=== PATIENT | female | born 1980 | race Two or more races ===

== ENCOUNTER 2017-04-19 09:15 | Emergency (ER) | payer OTHER ==
[2017-04-19] MEDS ORDERED: NS 1,000 ML IV ONE (09:36)
--- NOTE | 2017-04-19 09:37 | EDPHY ---
HPI/HX/ROS/PE/MDM Narrative: CHIEF COMPLAINT: Flank pain, abdominal pain, nausea HPI: The patient is a Togolese-speaking 37 y/o female complaining of left flank pain onset two weeks ago and worsening over the last week. Shortly after flank pain began, she developed lower abdominal pain and nausea. Her symptoms worsened this morning and she came into he ED instead of her PCP due to pain. She has associated polyuria and darker urine, but denies dysuria or hematuria. She is having normal bowel movements and denies vomiting. She has not had these symptoms previously. She has a history of a cholecystectomy and fatty liver. History obtained via international controller. REVIEW OF SYSTEMS: Aside from elements discussed in the HPI, a comprehensive 10-point review of systems was reviewed and is negative. PMH: "fat on liver;" cholecystectomy SOCIAL HISTORY: Togolese-speaking. [facility] PHYSICAL EXAM: General:Patient is alert, in no acute distress. ENT:Eyes are normal to inspection. ENT inspection normal. Neck: Normal inspection. Full range of motion. Respiratory:No respiratory distress. Breath sounds normal bilaterally. Cardiovascular: Regular rate and rhythm. Strong peripheral pulses. Normal cap refill. Abdomen:The abdomen has diffuse tenderness to palpation. There are no peritoneal signs. There are normal bowel sounds. Back: Normal to inspection. Left flank tenderness. Skin: Normal color. No rash. Warm and dry. Extremities: Normal appearance. Full range of motion. Neuro: Oriented x3. Normal motor function. Normal sensory function. ED Course: This is a healthy 37 y/o female presenting with a 2-week history of worsening left flank pain and lower abdominal pain that is now associated with nausea and polyuria. She has left CVA tenderness and diffuse abdominal tenderness on exam. Plan for IV, labs, UA, and symptom management. We will consider imaging if symptoms do not improve. 30mg IV Toradol, 4mg IV Zofran, 0.5mg IV Dilaudid administered for pain and nausea. Abdominal CT is negative for acute process. Her UA shows some blood. She continues to have pain. Pelvic US ordered. US is negative. Urine will be sent for culture. I discussed work up with her via international controller. She will be discharged in good condition with antibiotics and recommendation to follow up with her PCP for unimproved symptoms. Return precautions given. She is comfortable with plan for follow up. - Data Points Imaging Results: Imaging Impressions Abdomen CT 04/19/17 10:37 Impression: 1. No CT evidence of appendicitis, abscess or bowel obstruction. 2. Small Fat-containing periumbilical abdominal wall hernia. 3. No urinary tract obstruction. Findings and recommendations discussed with Emergency Department physician, Silvio Bhakta MD at 12:01 hour, 04/19/2017. Final report concurs with initial preliminary interpretation. Pelvic/Renal Ultrasound 04/19/17 12:25 Impression: 1. Small subacute right ovarian hemorrhagic follicle. No torsion. 2. Probable small, 0.6 cm, endometrial polyp. Findings discussed with Emergency Department physician, Dr. Silvio Bhakta, on April 19, 2017 at 1335 hours. Imaging: Discussed imaging studies w/ call out operator Radiologist, I viewed and interpreted images myself Laboratory Results: Laboratory Results 04/19/17 09:49 04/19/17 09:49 04/19/17 04/19/17 04/19/17 09:49 09:49 09:49 WBC RBC Hgb Hct MCV MCH MCHC RDW Plt Count MPV Neut % (Auto) Lymph % (Auto) Reynolds % (Auto) Eos % (Auto) Baso % (Auto) Nucleat RBC Rel Count Absolute Neuts (auto) Absolute Lymphs (auto) Absolute Monos (auto) Absolute Eos (auto) Absolute Basos (auto) Absolute Nucleated RBC Immature Gran % Immature Gran # Sodium 141 mEq/L mEq/L (134-144) Potassium 3.9 mEq/L mEq/L (3.5-5.2) Chloride 106 mEq/L mEq/L (97-110) Carbon Dioxide 21 mEq/l L mEq/l (22-31) Anion Gap 14 mEq/L mEq/L (8-16) BUN 13 mg/dL mg/dL (7-23) Creatinine 0.5 mg/dL L mg/dL (0.6-1.0) Estimated GFR > 60 Glucose 102 mg/dL H mg/dL (70-100) Calcium 9.5 mg/dL mg/dL (8.5-10.4) Beta HCG, Qual NEGATIVE Urine Color YELLOW Urine Appearance HAZY Urine pH 5.0 (5.0-7.5) Ur Specific Prim 1.016 (1.002-1.030) Urine Protein NEGATIVE (NEGATIVE) Urine Ketones NEGATIVE (NEGATIVE) Urine Blood 2+ H (NEGATIVE) Urine Nitrate NEGATIVE (NEGATIVE) Urine Bilirubin NEGATIVE (NEGATIVE) Urine Urobilinogen NEGATIVE EU EU (0.2-1.0) Ur Leukocyte Esterase NEGATIVE (NEGATIVE) Urine RBC 5-10 /hpf H /hpf (0-3) Urine WBC NONE SEEN /hpf /hpf (0-3) Ur Epithelial Cells TRACE /lpf /lpf (NONE-1+) Urine Mucus TRACE /lpf /lpf (NONE-1+) Urine Glucose NEGATIVE (NEGATIVE) 04/19/17 09:49 WBC 7.73 10^3/uL 10^3/uL (3.80-9.50) RBC 5.43 10^6/uL H 10^6/uL (4.18-5.33) Hgb 14.7 g/dL g/dL (12.6-16.3) Hct 44.5 % % (38.0-47.0) MCV 82.0 fL fL (81.5-99.8) MCH 27.1 pg L pg (27.9-34.1) MCHC 33.0 g/dL g/dL (32.4-36.7) RDW 13.4 % % (11.5-15.2) Plt Count 274 10^3/uL 10^3/uL (150-400) MPV 10.3 fL fL (8.7-11.7) Neut % (Auto) 66.7 % % (39.3-74.2) Lymph % (Auto) 26.1 % % (15.0-45.0) Reynolds % (Auto) 4.4 % L % (4.5-13.0) Eos % (Auto) 1.8 % % (0.6-7.6) Baso % (Auto) 0.5 % % (0.3-1.7) Nucleat RBC Rel Count 0.0 % % (0.0-0.2) Absolute Neuts (auto) 5.15 10^3/uL 10^3/uL (1.70-6.50) Absolute Lymphs (auto) 2.02 10^3/uL 10^3/uL (1.00-3.00) Absolute Monos (auto) 0.34 10^3/uL 10^3/uL (0.30-0.80) Absolute Eos (auto) 0.14 10^3/uL 10^3/uL (0.03-0.40) Absolute Basos (auto) 0.04 10^3/uL 10^3/uL (0.02-0.10) Absolute Nucleated RBC 0.00 10^3/uL 10^3/uL (0-0.01) Immature Gran % 0.5 % % (0.0-1.1) Immature Gran # 0.04 10^3/uL 10^3/uL (0.00-0.10) Sodium Potassium Chloride Carbon Dioxide Anion Gap BUN Creatinine Estimated GFR Glucose Calcium Beta HCG, Qual Urine Color Urine Appearance Urine pH Ur Specific Prim Urine Protein Urine Ketones Urine Blood Urine Nitrate Urine Bilirubin Urine Urobilinogen Ur Leukocyte Esterase Urine RBC Urine WBC Ur Epithelial Cells Urine Mucus Urine Glucose Medications Given: Discontinued Medications Hydromorphone HCl (Dilaudid) 0.5 mg IVP EDNOW ONE Stop: 04/19/17 10:11 Last Admin: 04/19/17 10:15 Dose: 0.5 mg Hydromorphone HCl (Dilaudid) 0.5 mg IVP EDNOW ONE Stop: 04/19/17 12:36 Last Admin: 04/19/17 12:40 Dose: 0.5 mg Sodium Chloride (Ns) 1,000 mls @ 0 mls/hr IV EDNOW ONE; Wide Open PRN Reason: Protocol Stop: 04/19/17 09:37 Last Admin: 04/19/17 09:49 Dose: 1,000 mls Ketorolac Tromethamine (Toradol) 30 mg IVP EDNOW ONE Stop: 04/19/17 09:39 Last Admin: 04/19/17 09:49 Dose: 30 mg Ondansetron HCl (Zofran) 4 mg IVP EDNOW ONE Stop: 04/19/17 10:11 Last Admin: 04/19/17 10:14 Dose: 4 mg General Time Seen by Provider: 04/19/17 09:28 Initial Vital Signs: Initial Vital Signs Temperature (C) 36.2 C 04/19/17 09:19 Heart Rate 109 H 04/19/17 09:19 Respiratory Rate 16 04/19/17 09:19 Blood Pressure 152/99 H 04/19/17 09:19 O2 Sat (%) 97 04/19/17 09:19 O2 Delivery Mode Room Air Allergies/Adverse Reactions: No Known Allergies Allergy (Verified 04/19/17 09:18) Home Medications: Medication Instructions Recorded Ibuprofen [Motrin (*)] 400 - 600 mg PO Q8H PRN 07/24/14 Cephalexin [Keflex] 500 mg PO TID #21 cap 04/19/17 Departure - Departure Disposition: Home, Routine, Self-Care Clinical Impression: Flank pain Abdominal pain Qualifiers: Abdominal location: generalized Qualified Code(s): R10.84 - Generalized abdominal pain Urinary tract infection Qualifiers: Urinary tract infection type: site unspecified Hematuria presence: with hematuria Qualified Code(s): N39.0 - Urinary tract infection, site not specified Condition: Good Instructions: Urinary Tract Infection in Women (ED), Abdominal Pain (ED), Flank Pain (ED) Additional Instructions: 1. Take antibiotics as prescribed. Be sure to complete entire prescription. 2. Use Tylenol or ibuprofen as directed on the packaging as needed for pain over the 3-4 days. 3. Follow up with your primary care provider for unimproved symptoms over the next few days. 4. Return to the ED for worsening of condition. Referrals: HEATHER MURRIETA [Other] - As per Instructions Prescriptions: Cephalexin [Keflex] 500 mg PO TID #21 cap Report Scribed for: Silvio Bhakta Report Scribed by: Mónica Godfrey Date of Report: 04/19/17 Time of Report: 09:37 Physician Review and Approval Statement: Portions of this note were transcribed by an ED scribe. I personally performed the history, physical exam, and medical decision making; and confirm the accuracy of the information in the transcribed note.
[2017-04-19] MEDS ORDERED: KETOROLAC 30 MG/1 ML SDV IVP ONE (09:38)
[2017-04-19 10:01] LABS: % IMMATURE GRANULYOCYTES 0.5 % (0.0-1.1); ABSOLUTE IMMATURE GRANULOCYTES 0.04 10^3/uL (0.00-0.10); ADD DIFF? NO; ADD MORPH? NO; ADD SCAN? YES; FRAGMENT RBC FLAG 0 (0-99); HEMATOCRIT 44.5 % (38.0-47.0); HEMOGLOBIN 14.7 g/dL (12.6-16.3); LEFT SHIFT FLG 0 (0-99); LIPEMIA HEMOLYSIS FLAG 80 (0-99); MEAN CELL HEMOGLOBIN 27.1 pg (27.9-34.1); MEAN PLATELET VOLUME 10.3 fL (8.7-11.7); PLATELET CLUMPS FLAG 0 (0-99); PLATELET COUNT 274 10^3/uL (150-400); RED BLOOD CELL COUNT 5.43 10^6/uL (4.18-5.33); RED CELL DISTRIBUTION WIDTH 13.4 % (11.5-15.2)
[2017-04-19 10:05] LABS: ATYPICAL LYMPHOCYTE FLAG 130 (0-99)
[2017-04-19 10:07] LABS: COLOR YELLOW; LEUKOCYTE ESTERASE,URINE NEGATIVE (NEGATIVE); NITRITE,URINE NEGATIVE (NEGATIVE)
[2017-04-19] MEDS ORDERED: HYDROmorphONE/DILAUDID 1 MG/ML SYR IVP ONE ×2 (10:10→12:35)
[2017-04-19] MEDS ORDERED: ONDANSETRON 4 MG/2 ML VIAL IVP ONE ×2 (10:10→14:03)
[2017-04-19 10:15] LABS: ANION GAP 14 mEq/L (8-16); CALCIUM 9.5 mg/dL (8.5-10.4); CARBON DIOXIDE 21 mEq/l (22-31); CHLORIDE 106 mEq/L (97-110); CREATININE 0.5 mg/dL (0.6-1.0); GLOMERULAR FILTRATION RATE > 60; GLUCOSE 102 mg/dL (70-100); MUCUS TRACE /lpf (NONE-1+); POTASSIUM 3.9 mEq/L (3.5-5.2); SODIUM 141 mEq/L (134-144)
[2017-04-19 10:16] LABS: WBC,URINE NONE SEEN /hpf (0-3)
[2017-04-19 10:33] LABS: SCAN NEGATIVE
[2017-04-19] MEDS ORDERED: IOPAMIDOL (ISOVUE-300) 100 ML BTL ONE (11:21)
[2017-04-19 11:55] VITALS: O2SAT 98
[2017-04-19 14:47] VITALS: BP 99/62; PULSE 93; RESP 20; TEMP 97.5
== END 2017-04-19 14:46 | disposition home or self-care (01) ==
DX: N39.0 Urinary tract infection, site not specified (principal); B96.89 Other specified bacterial agents as the cause of diseases classified elsewhere; E86.9 Volume depletion, unspecified; Z90.49 Acquired absence of other specified parts of digestive tract
CPT/HCPCS: 96374; J1170; J1885; J2405; Q9967

== ENCOUNTER 2017-08-21 11:02 | Emergency (ER) | payer MEDICAID, OTHER ==
[2017-08-21 11:59] LABS: PLATELET COUNT 301 10^3/uL (150-400)
--- NOTE | 2017-08-21 13:02 | EDPHY ---
H & P Stated Complaint: BILAT HAND, KNEE, NECK PAIN AND EDEMA HPI/ROS: Chief complaint: Joint pain and swelling History of present illness: This is a 37-year-old female who presents to the emergency department for evaluation of joint pain and swelling. Patient reports the onset of symptoms over the last 3 days. Initially started in her left wrist , then her right wrist became involved and now her left knee. She is becoming sore in her neck and back as well. She states a few days prior to the onset of symptoms she had a rash. She did go to her primary care doctor's office and was told it was likely viral and the rash resolved on its own without specific intervention. She denies other potential precipitating factors. She has been treating the pain with naproxen with minimal improvement. She denies other alleviating or any aggravating factors. She denies other associated signs or symptoms including no fevers, no recent cold symptoms, no current rash, no history of trauma recently. Review of systems: A 10 point review of systems was obtained and other than described above was negative - Personal History LMP (Females 10-55): Unknown Current Tetanus/Diphtheria Vaccine: Yes Current Tetanus Diphtheria and Acellular Pertussis (TDAP): Yes Tetanus Vaccine Date: < 10 - Medical/Surgical History Hx Asthma: No Hx Chronic Respiratory Disease: No Hx Diabetes: No Hx Cardiac Disease: No Hx Renal Disease: No Hx Cirrhosis: No Hx Alcoholism: No Hx HIV/AIDS: No Hx Splenectomy or Spleen Trauma: No Other PMH: DENIES PSH - Social History Smoking Status: Never smoked - Physical Exam Exam: General Appearance: Alert, nontoxic. Eyes: Pupils equal and round no pallor or injection. ENT, Mouth: Mucous membranes moist. Respiratory: There are no retractions, lungs are clear to auscultation. Cardiovascular: Regular rate and rhythm. Gastrointestinal: Abdomen is soft and non tender, no masses, bowel sounds normal. Neurological: Alert and oriented x4. Cranial nerves 2-12 grossly intact. Strength and sensation intact and symmetrical. Skin: Mild erythema and edema around the left and right wrist and left knee. Musculoskeletal: Neck is supple non tender. The spine in the rest the back is nontender to palpation. There is mild erythema edema to both wrists and to the left knee. Tender to palpation and there is discomfort with ranging him. The other joints are unremarkable. Psychiatric: Patient is oriented X 3, there is no agitation. Constitutional: Initial Vital Signs Temperature (C) 37.1 C 08/21/17 11:12 Heart Rate 75 08/21/17 11:12 Respiratory Rate 16 08/21/17 11:12 Blood Pressure 103/78 08/21/17 11:12 O2 Sat (%) 93 08/21/17 11:12 O2 Delivery Mode Room Air Allergies/Adverse Reactions: No Known Allergies Allergy (Verified 04/19/17 09:18) Home Medications: Medication Instructions Recorded NK [No Known Home Meds] 08/21/17 Medical Decision Making ED Course/Re-evaluation: Patient is discussed with my secondary supervising physician Dr. Angelo Goldman. Patient presents to the emergency department for pain and swelling in multiple joints. On presentation she is nontoxic. She does appear somewhat uncomfortable. Blood studies are obtained with nonspecific findings. I have consulted with rheumatology, Dr. Megha Rm. She recommended patient get an CHIN , RF, anti-CCP and parvo virus blood studies. She further recommends a prednisone taper. This is written for patient for 30 mg for 3 days, 20 mg for 3 days, 10 mg for 3 days and then 5 mg for 3 days. Patient will follow up with her primary care doctor or Rheumatology this week for recheck. Return precautions are given. Patient voiced understanding and agreement with plan. The shift mechanic was used to facilitate communication with patient. Differential Diagnosis: Included but not limited to autoimmune polyarthritis, viral polyarthritis, unlikely joint arthropathy such as gout, pseudogout or septic arthritis given multiple involved joints - Data Points Laboratory Results: Laboratory Results 08/21/17 11:45 08/21/17 11:45 08/21/17 08/21/17 08/21/17 Unknown 13:35 13:35 WBC RBC Hgb Hct MCV MCH MCHC RDW Plt Count MPV Neut % (Auto) Lymph % (Auto) Gage % (Auto) Eos % (Auto) Baso % (Auto) Nucleat RBC Rel Count Absolute Neuts (auto) Absolute Lymphs (auto) Absolute Monos (auto) Absolute Eos (auto) Absolute Basos (auto) Absolute Nucleated RBC Immature Gran % Seg Neutrophils % Band Neutrophils % Lymphocytes % Monocytes % Eosinophils % Immature Gran # Absolute Seg Neuts Absolute Band Neuts Absolute Lymphocytes Absolute Monocytes Absolute Eosinophils RBC/WBC/PLT Morphology Atypical Lymphocytes Platelet Estimate Smear Review By ESR Sodium Potassium Chloride Carbon Dioxide Anion Gap BUN Creatinine Estimated GFR Glucose Calcium Total Bilirubin AST ALT Alkaline Phosphatase C-Reactive Protein Total Protein Albumin Beta HCG, Qual Rheum Factor Semi-Quant < 8.6 IU/mL IU/mL (<12.0) Anti-Cycl Citrul Peptide Pending CHIN Screen Parvovirus B19 IgG Ab Pending Parvovirus B19 IgM Ab Pending Parvovirus Interpret Pending Group A Strep Screen Group A Strep DNA Pending 08/21/17 08/21/17 08/21/17 13:35 12:15 11:45 WBC RBC Hgb Hct MCV MCH MCHC RDW Plt Count MPV Neut % (Auto) Lymph % (Auto) Gage % (Auto) Eos % (Auto) Baso % (Auto) Nucleat RBC Rel Count Absolute Neuts (auto) Absolute Lymphs (auto) Absolute Monos (auto) Absolute Eos (auto) Absolute Basos (auto) Absolute Nucleated RBC Immature Gran % Seg Neutrophils % Band Neutrophils % Lymphocytes % Monocytes % Eosinophils % Immature Gran # Absolute Seg Neuts Absolute Band Neuts Absolute Lymphocytes Absolute Monocytes Absolute Eosinophils RBC/WBC/PLT Morphology Atypical Lymphocytes Platelet Estimate Smear Review By ESR Sodium Potassium Chloride Carbon Dioxide Anion Gap BUN Creatinine Estimated GFR Glucose Calcium Total Bilirubin AST ALT Alkaline Phosphatase C-Reactive Protein Total Protein Albumin Beta HCG, Qual NEGATIVE Rheum Factor Semi-Quant Anti-Cycl Citrul Peptide CHIN Screen Pending Parvovirus B19 IgG Ab Parvovirus B19 IgM Ab Parvovirus Interpret Group A Strep Screen NEGATIVE (NEGATIVE) Group A Strep DNA 08/21/17 08/21/17 11:45 11:45 WBC 5.96 10^3/uL 10^3/uL (3.80-9.50) RBC 4.93 10^6/uL 10^6/uL (4.18-5.33) Hgb 13.1 g/dL g/dL (12.6-16.3) Hct 39.7 % % (38.0-47.0) MCV 80.5 fL L fL (81.5-99.8) MCH 26.6 pg L pg (27.9-34.1) MCHC 33.0 g/dL g/dL (32.4-36.7) RDW 13.6 % % (11.5-15.2) Plt Count 301 10^3/uL 10^3/uL (150-400) MPV 10.0 fL fL (8.7-11.7) Neut % (Auto) [employer] Lymph % (Auto) [employer] Gage % (Auto) [employer] Eos % (Auto) [employer] Baso % (Auto) [employer] Nucleat RBC Rel Count 0.0 % % (0.0-0.2) Absolute Neuts (auto) [employer] Absolute Lymphs (auto) [employer] Absolute Monos (auto) [employer] Absolute Eos (auto) [employer] Absolute Basos (auto) [employer] Absolute Nucleated RBC 0.00 10^3/uL 10^3/uL (0-0.01) Immature Gran % [employer] Seg Neutrophils % 62 % % Band Neutrophils % 5 % % Lymphocytes % 31 % % Monocytes % 1 % % Eosinophils % 1 % % Immature Gran # [employer] Absolute Seg Neuts 3.70 10^/uL 10^/uL (1.70-6.50) Absolute Band Neuts 0.30 10^3/uL 10^3/uL (0.00-0.70) Absolute Lymphocytes 1.85 10^3/uL 10^3/uL (1.00-3.00) Absolute Monocytes 0.06 10^3/uL L 10^3/uL (0.30-0.80) Absolute Eosinophils 0.06 10^3/uL 10^3/uL (0.03-0.40) RBC/WBC/PLT Morphology NORMAL (NORMAL) Atypical Lymphocytes 2+ H Platelet Estimate ADEQUATE (ADEQ) Smear Review By Pending ESR 20 MM/HR MM/HR (0-20) Sodium 146 mEq/L H mEq/L (134-144) Potassium 4.1 mEq/L mEq/L (3.5-5.2) Chloride 111 mEq/L H mEq/L (97-110) Carbon Dioxide 21 mEq/l L mEq/l (22-31) Anion Gap 14 mEq/L mEq/L (8-16) BUN 11 mg/dL mg/dL (7-23) Creatinine 0.5 mg/dL L mg/dL (0.6-1.0) Estimated GFR > 60 Glucose 97 mg/dL mg/dL (70-100) Calcium 9.2 mg/dL mg/dL (8.5-10.4) Total Bilirubin 0.2 mg/dL mg/dL (0.1-1.4) AST 65 IU/L H IU/L (14-46) ALT 114 IU/L H IU/L (9-52) Alkaline Phosphatase 88 IU/L IU/L (38-126) C-Reactive Protein < 5.0 mg/L mg/L (<10.0) Total Protein 6.9 g/dL g/dL (6.3-8.2) Albumin 3.8 g/dL g/dL (3.5-5.0) Beta HCG, Qual Rheum Factor Semi-Quant Anti-Cycl Citrul Peptide CHIN Screen Parvovirus B19 IgG Ab Parvovirus B19 IgM Ab Parvovirus Interpret Group A Strep Screen Group A Strep DNA Medications Given: Discontinued Medications Ketorolac Tromethamine (Toradol) 15 mg IVP EDNOW ONE Stop: 08/21/17 13:11 Last Admin: 08/21/17 13:14 Dose: 15 mg Departure - Departure Disposition: Home, Routine, Self-Care Clinical Impression: Polyarthritis Condition: Good Instructions: Autoimmune Disease (ED) Additional Instructions: Please follow-up with Rheumatology or your primary care doctor this week for recheck/Esta semana fije jocelyn de seguimiento con gallardo medico de cabecera o el reumatologo para un reviso. If you follow-up with your primary care Please let your primary care doctor know that a parvovirus, CHIN, RF and anti CCP antibody studies are pending at the request of Rheumatology./Si acaso hace seguimiento con gallardo medico de cabecera por favor indiqueles que estan pendientes los estudios de umu para parvovirus, CHIN, RF y anti CCP, esto se pido olvin el reumatologo. Your primary care doctor can reach out to Rheumatology discuss your case/Gallardo medico de cabecera puede puede llamar a Reumatologia para repasar gallardo silvano. If symptoms worsen or new symptoms develop return to the emergency room for recheck/Regrese al departamento de emergencia si empeoran tereso sintomas o desarrolla sintomas nuevos para un reviso Gallardo medicamento nuevo es Presnisona, tomelo hasta terminarlo y siga las indicaciones j carlos deejay es indicado. Referrals: [facility],. [Primary Care Provider] - As per Instructions Megha Chaparro MD [Medical Doctor] - As per Instructions Print Language: [place]an
[2017-08-21] MEDS ORDERED: KETOROLAC 15 MG/1 ML SDV IVP ONE (13:10)
[2017-08-21 13:41] VITALS: RESP 18
[2017-08-21 13:55] VITALS: BP 123/62; PULSE 79; TEMP 97.7; O2SAT 96
== END 2017-08-21 14:03 | disposition home or self-care (01) ==
DX: M13.0 Polyarthritis, unspecified (principal)
CPT/HCPCS: 86747-90; 96374; J1885

== ENCOUNTER 2018-10-28 18:54 | Emergency (ER) | payer OTHER | END 2018-10-28 21:00 | disposition home or self-care (01) ==